=== PATIENT | female | born 1985 | race Caucasian/White ===

== ENCOUNTER 2020-01-26 11:21 | Inpatient (IN) | payer OTHER ==
[~2020-01-26] VITALS: Ht 160 cm; Wt 70.5 kg
[2020-01-26 12:00] VITALS: BP 115/64
--- NOTE | 2020-01-26 12:00 | NUR ---
The assessment has been completed. COREY SINGH Time: 1200 A 34 year old FEMALE admitted to under services of ZEE SNEED DO. Pt. arrived via ambulatory from [place]. Chief complaint: BENZODIAZAPINE WITHDRAWAL. COREY SINGH
--- NOTE | 2020-01-26 12:04 | NUR ---
PATIENT MEETS [facility], CINA=15 CIWA(B)=32. PATIENT IS GOING TO FOLLOW UP WITH THE [facility] FOR LONG-TERM TREATMENT FOR HER AFTERCARE PLAN. PATIENT REPORTS THAT SHE HAS TRANSPORTATION TO FACILITY ON WEDNESDAY, January POST DISCHARGE. DYLAN BREWSTER B.A. FINANCIAL SERVICES AUDITOR
--- NOTE | 2020-01-26 12:41 | NUR ---
DR MOSELEY NOTIFIED THAT PT WAS ON THE FLOOR AND C/O ABD CRAMPS,NAUSEA,AND RESTLESS LEGS. ALSO PT IS REQUESTING NICOTEINE REPLACEMENT.STATES HE WILL PUT ORDERS IN
[2020-01-26 12:47] LABS: BILIRUBIN NEGATIVE (NEGATIVE); BLOOD 1+ (NEGATIVE); CLARITY CLOUDY (CLEAR); COLOR YELLOW (YELLOW); GLUCOSE NEGATIVE (NEGATIVE); KETONE NEGATIVE (NEGATIVE); LEUKO ESTERASE 1+ (NEGATIVE); NITRITE NEGATIVE (NEGATIVE); SPECIFIC GRAVITY 1.025 (1.005-1.030); UROBILINOGEN 0.2 E.U./dl (0.2-1.0)
[2020-01-26 12:59] LABS: URINE AMPHETAMINES < 1000 (1000ng/ml); URINE BARBITURATES < 200 (200ng/ml); URINE BENZODIAZEPINES > 200 (200ng/ml); URINE CANNABINOIDS (THC) > 50 (50ng/ml); URINE COCAINE > 300 (300ng/ml); URINE METHADONE < 300 (300ng/ml); URINE OPIATES < 300 (300ng/ml)
[2020-01-26 13:00] LABS: URINE PHENCYCLIDINE < 25 (25ng/ml)
[2020-01-26 13:15] LABS: BACTERIA 2+; CALCIUM OXALATE CRYSTALS 2+; EPITHELIAL CELLS 21-30; RBC 21-30 rbc/hpf (0-2); WBC 31-40 wbc/hpf (0-5)
--- NOTE | 2020-01-26 13:41 | NUR ---
PT C/O GI UPSET, NAUSEA AND LEG PAIN. MEDICATED WITH MAALOX,MOTRIN AND ZOFRAN. PT WAS ALSO GIVEN AND INSTRUCTED ON NICOTROL INHALER USE. WILL CONTINUE TO MONITOR FOR RELIEF. PT STATES SHE IS VERY ANXIOUS AND WOULD LIKE SOMETHING. WILL ASK CARE TEAM. CALL LIGHT WITHIN REACH.
[2020-01-26 13:45] LABS: BASO % 0.6 % (0.0-1.0); EOS # 0.1 10*3/uL (0.0-0.4); EOS % 2.3 % (1.0-4.0); LYMPH % 48.8 % (27.0-41.0); MEAN CELL VOLUME 91.5 fl (81.0-99.0); MEAN CORPUSCULAR HGB 29.7 pg (27.0-31.0); MEAN CORPUSCULAR HGB CONC 32.4 g/dl (33.0-37.0); MEAN PLATELET VOLUME 9.9 fl (9.6-12.3); MONO # 0.4 10*3/uL (0.1-1.0); MONO % 5.8 % (3.0-9.0); NEUT # 2.6 10*3/uL (2.3-7.9); NEUT % 42.3 % (47.0-73.0); PLATELET COUNT AUTOMATED 246 10*3/uL (130-400); RED BLOOD COUNT 4.48 10*6/uL (4.10-5.10); RED CELL DISTRI WIDTH 13.3 % (0-14.5); WHITE BLOOD COUNT 6.2 10*3/uL (4.8-10.8)
[2020-01-26 13:56] LABS: INTERNATIONAL NORM RATIO 0.9 (2.0-3.5)
[2020-01-26 13:58] LABS: ALBUMIN 3.5 gm/dl (3.1-4.5); ALKALINE PHOSPHATASE 61 U/L (45-117); BUN 6 mg/dl (7-24); CHLORIDE 110 mmol/L (98-107); POTASSIUM 3.9 mmol/L (3.5-5.1); SGOT/AST 16 IU/L (3-35); SGPT/ALT 23 U/L (12-78); SODIUM 142 mmol/L (136-145); TOTAL PROTEIN 7.3 gm/dL (6.4-8.2)
[2020-01-26 14:05] LABS: ETHYL ALCOHOL < 3.0 mg/dl (<3)
--- NOTE | 2020-01-26 14:19 | NUR ---
PT C/O RESTLESSNESS AND ANXIETY. MEDICATED WITH ROBAXIN, REQUIP AND VISTARIL. WILL CONTINUE TO MONITOR. VSS. UPDATED PT ON POC. CALL LIGHT WITHIN REACH
[2020-01-26 17:09] VITALS: BP 103/61; BP 124/83
--- NOTE | 2020-01-26 19:54 | NUR ---
24 HR chart check completed.
[2020-01-26 20:00] VITALS: BP 116/67
--- NOTE | 2020-01-26 20:40 | NUR ---
Patient displaying withdrawal symptoms, including: irritability, anxiousness, restlessness and agitation. Scheduled/PRN medications provided, SEE EMAR. Will continue to monitor medication effectiveness.
--- NOTE | 2020-01-26 22:00 | NUR ---
Patient resting. Responding to scheduled medications with fewer complaints of pain and anxiety.
[2020-01-27] VITALS: BP 100/52; BP 91/48
--- NOTE | 2020-01-27 | NUR ---
SLEEPING, AWAKENED FOR ROUTINE SUBUTEX, TAKEN WITHOUT DIFFICULTY. PATIENT RETURNED TO SLEEP
[2020-01-27 04:00] VITALS: BP 104/58
[2020-01-27] MEDS ORDERED: BUSPAR5 MG PO (04:52)
--- NOTE | 2020-01-27 06:00 | NUR ---
Patient resting. Responding to scheduled medications with fewer complaints of pain and anxiety.
--- NOTE | 2020-01-27 07:50 | NUR ---
Patient displaying withdrawal symptoms, including: irritability, anxiousness, restlessness, muscle aches, abd cramps and nausea. Scheduled/PRN medications provided, doctor notified of patient's agitation and AMA potential. Will continue to monitor medication effectiveness.
[2020-01-27 08:00] VITALS: BP 108/64
--- NOTE | 2020-01-27 08:09 | NUR ---
SECURITY CALLED AT THIS TIME REGARDING PATIENT'S REQUEST FOR SOME OF HER BELONGINGS. SECURITY BROUGHT BAG IN AND PATIENT ABLE TO RETRIEVE HER CLOTHES & TOILETRIES. WILL CONTINUE TO MONITOR.
--- NOTE | 2020-01-27 09:15 | NUR ---
Patient resting. Responding to scheduled medications with fewer complaints of pain and anxiety.
--- NOTE | 2020-01-27 13:30 | NUR ---
PATIENT MEDICATED WITH PO BENTYL, VISTARIL AND ROBAXIN PER PRN ORDER FOR C/O STOMACH CRAMPS, ANXIETY AND MUSCLE ACHES. WILL MONITOR EFFECTIVENESS.
[2020-01-27 16:00] VITALS: BP 97/59
--- NOTE | 2020-01-27 16:30 | NUR ---
ROUTINE SUBUTEX GIVEN AT THIS TIME. WILL CONTINUE TO MONITOR.
--- NOTE | 2020-01-27 19:42 | NUR ---
24 HR chart check completed.
[2020-01-27 20:00] VITALS: BP 91/47
--- NOTE | 2020-01-27 21:00 | NUR ---
Patient resting. Responding to scheduled medications with fewer complaints of pain and anxiety.
[2020-01-28] VITALS: BP 106/71
--- NOTE | 2020-01-28 00:30 | NUR ---
Patient resting. Responding to scheduled medications with fewer complaints of pain and anxiety.
--- NOTE | 2020-01-28 06:00 | NUR ---
Patient resting. Responding to scheduled medications with fewer complaints of pain and anxiety.
--- NOTE | 2020-01-28 08:00 | NUR ---
Patient displaying withdrawal symptoms, including: irritability, anxiousness, restlessness, muscle aches, stomach cramps and nausea. Scheduled/PRN medications provided, doctor notified of patient's agitation and AMA potential. Will continue to monitor medication effectiveness.
[2020-01-28 09:00] VITALS: BP 107/62; BP 116/69
--- NOTE | 2020-01-28 09:30 | NUR ---
Patient resting. Responding to scheduled medications with fewer complaints of pain and anxiety.
[2020-01-28 12:00] VITALS: BP 114/63
--- NOTE | 2020-01-28 14:05 | NUR ---
PT MEDICATED WITH PO BENTYL, VISTARIL, ROBAXIN AND ZOFRAN PER PRN ORDER FOR C/O STOMACH CRAMPS, ANXIETY, MUSCLE ACHES AND NAUSEA. WILL MONITOR EFFECTIVENESS. CALL LIGHT WITHIN REACH.
--- NOTE | 2020-01-28 15:10 | NUR ---
Patient resting. Responding to scheduled medications with fewer complaints of pain and anxiety.
[2020-01-28 16:00] VITALS: BP 100/76
[2020-01-28 20:00] VITALS: BP 119/65
--- NOTE | 2020-01-28 20:10 | NUR ---
24 HR chart check completed.
--- NOTE | 2020-01-28 22:00 | NUR ---
Patient resting. Responding to scheduled medications with fewer complaints of pain and anxiety.
[2020-01-29] VITALS: BP 117/70
--- NOTE | 2020-01-29 01:00 | NUR ---
Patient resting. Responding to scheduled medications with fewer complaints of pain and anxiety.
--- NOTE | 2020-01-29 06:00 | NUR ---
Patient resting. Responding to scheduled medications with fewer complaints of pain and anxiety.
[2020-01-29 06:26] LABS: MEAN CELL VOLUME 90.5 fl (81.0-99.0); MEAN CORPUSCULAR HGB 29.3 pg (27.0-31.0); MEAN CORPUSCULAR HGB CONC 32.4 g/dl (33.0-37.0); MEAN PLATELET VOLUME 10.5 fl (9.6-12.3); PLATELET COUNT AUTOMATED 197 10*3/uL (130-400); RED BLOOD COUNT 4.09 10*6/uL (4.10-5.10); RED CELL DISTRI WIDTH 13.2 % (0-14.5); WHITE BLOOD COUNT 5.3 10*3/uL (4.8-10.8)
[2020-01-29 06:35] LABS: CREATININE 0.79 mg/dL (0.55-1.02)
[2020-01-29 07:41] LABS: ATYPICAL LYMPHS 4 % (0-0); BASOPHILS 2 % (0-1); PLATELET SUFFICIENCY NORMAL (NORMAL); TOTAL CELLS COUNTED 100 #CELLS
[2020-01-29 08:00] VITALS: BP 87/65
--- NOTE | 2020-01-29 08:29 | NUR ---
PT MEDICATED WITH PRN REQUIP FOR C/O RESTLESS LEGS.
[2020-01-29] MEDS ORDERED: DICYCLOMINE HCL20 MG PO (09:39)
[2020-01-29] MEDS ORDERED: ROPINIROLE HYD0.5 MG PO (09:39)
[2020-01-29] MEDS ORDERED: CHLORDIAZEPOXID25 M1 PO (09:39)
--- NOTE | 2020-01-29 10:16 | NUR ---
PT DISCHARGED AND AMBULATED OFF THE FLOOR AT THIS TIME. DISCHARGE INSTRUCTIONS REVIEWED AND PATIENT PROVIDED PRESCRIPTIONS TO BE FILLED.
== END 2020-01-29 10:16 | disposition home or self-care (01) | DRG 773 ==
LOC: 4E 11:21
PROVIDERS: Registered Nurse; ADMIT Emergency Medicine
DX: F11.23 Opioid dependence with withdrawal (principal); R80.9 Proteinuria, unspecified; R82.71 Bacteriuria; E87.8 Other disorders of electrolyte and fluid balance, not elsewhere classified; F14.10 Cocaine abuse, uncomplicated; F13.239 Sedative, hypnotic or anxiolytic dependence with withdrawal, unspecified; E44.0 Moderate protein-calorie malnutrition; Z87.891 Personal history of nicotine dependence; Z90.49 Acquired absence of other specified parts of digestive tract; Z98.51 Tubal ligation status; Z82.49 Family history of ischemic heart disease and other diseases of the circulatory system; Z88.5 Allergy status to narcotic agent; Z71.6 Tobacco abuse counseling; Z68.27 Body mass index [BMI] 27.0-27.9, adult